=== PATIENT | female | born 1960 | race Caucasian/White ===

== ENCOUNTER 2017-11-07 14:36 | Emergency (ER) | payer OTHER ==
[~2017-11-07 14:36] MED LIST: ALBU8.5H8 IH; HYDR-305 PO; LEVO25TA4 PO; LISI10TA7 PO; NOCURR; OMEP10CA2 PO
== END 2017-11-07 14:43 | disposition left against medical advice (07) ==
LOC: EMS 14:37
DX: F41.9 Anxiety disorder, unspecified (principal); Z53.21 Procedure and treatment not carried out due to patient leaving prior to being seen by health care provider